=== PATIENT | male | born 1980 | race Caucasian/White ===

== ENCOUNTER 2016-11-08 11:45 | Emergency (ER) | payer OTHER ==
[~2016-11-08 11:45] MED LIST: PEN-VEE K PO; ULTRAM PO; VICODIN 5/500 T1 TAB PO
== END 2016-11-08 13:40 | disposition home or self-care (01) ==
LOC: CED 11:45
DX: S99.921A Unspecified injury of right foot, initial encounter (principal); F17.200 Nicotine dependence, unspecified, uncomplicated; E11.9 Type 2 diabetes mellitus without complications; Z88.1 Allergy status to other antibiotic agents; X58.XXXA Exposure to other specified factors, initial encounter; Y92.009 Unspecified place in unspecified non-institutional (private) residence as the place of occurrence of the external cause
CPT/HCPCS: 29405; 82947; 99283